=== PATIENT | male | born 1975 | race Caucasian/White ===

== ENCOUNTER 2024-05-10 12:56 | Inpatient (IN) | payer OTHER ==
[2024-05-10] MEDS ORDERED: LOPERAMIDE HCL 2 MG CAPSULE PO PRN (13:17)
[2024-05-10] MEDS ORDERED: POLYETHYLENE GLYCOL (HEALTHYLAX) 3350 17 GM PACKET PO PRN (13:17)
[2024-05-10] MEDS ORDERED: hydrOXYzine PAMOATE 25 MG CAPSULE (FP) PO PRN (13:17)
[2024-05-10] MEDS ORDERED: METHOCARBAMOL 500 MG TABLET PO PRN (13:17)
[2024-05-10] MEDS ORDERED: BENZOCAINE/MENTHOL (CHLORASEPTIC ) LOZENGE MM PRN (13:17)
[2024-05-10] MEDS ORDERED: NALOXONE (NARCAN) HCL 4 MG/0.1 ML SPRAY NS PRN (13:17)
[2024-05-10] MEDS ORDERED: BISMUTH SUBSALICYLATE 524 MG/30 ML PO PRN (13:17)
[2024-05-10] MEDS ORDERED: MAGNESIUM HYDROX 2400MG/30ML ORAL SUSPENSION 30 ML CUP PO PRN (13:17)
[2024-05-10] MEDS ORDERED: guaiFENesin 600 MG TABLET.ER (FP) PO PRN (13:17)
[2024-05-10] MEDS ORDERED: MAG HYDROX/AL HYDROX/SIMETH 30 ML UNIT-DOSE CUP PO PRN (13:17)
[2024-05-10] MEDS ORDERED: IBUPROFEN 400 MG TABLET (FP) PO PRN (13:17)
[2024-05-10] MEDS ORDERED: BENZONATATE 200 MG CAPSULE PO PRN (13:17)
[2024-05-10 13:22] VITALS: BMI 28.5
[2024-05-10] MEDS ORDERED: chlordiazePOXIDE HCL 25 MG CAPSULE ONE (15:11)
[2024-05-10] MEDS ORDERED: ONDANSETRON *ODT* 4 MG TABLET ONE (15:12)
[2024-05-10] MEDS: ACAMPROSATE CALCIUM 333 MG TABLET.DR PO SCH (15:14)
[2024-05-10] MEDS: ONDANSETRON *ODT* 4 MG TABLET SL PRN (15:16)
[2024-05-10] MEDS: chlordiazePOXIDE HCL 25 MG CAPSULE PO PRN (15:17)
[2024-05-10] MEDS: PRENATAL VITAMINS W/ FOLIC ACID TABLET (FP) PO SCH (15:22)
[2024-05-10] MEDS ORDERED: INSULIN (NOVOLOG) ASPART 100 UNITS/ML 10ML VIAL ONE ×2 (16:03→22:20)
[2024-05-10] MEDS: INSULIN ASPART SLIDING SCALE (NOVOLOG) 1 VIAL SQ SCH (16:15)
[2024-05-10 16:41] VITALS: RESP 16
[2024-05-10] MEDS: chlordiazePOXIDE HCL 25 MG CAPSULE PO SCH (17:34)
[2024-05-10] MEDS: DICYCLOMINE HCL 10 MG CAPSULE PO PRN (17:34)
[2024-05-10] MEDS: ACETAMINOPHEN 325 MG TABLET (FP) PO PRN (17:38)
[2024-05-10] MEDS: IBUPROFEN 600 MG TABLET (FP) PO PRN (20:09)
[2024-05-10] MEDS: MELATONIN 5 MG TABLETS PO SCH (22:22)
[2024-05-10] MEDS: GABAPENTIN 100 MG CAPSULE PO ONE (22:22)
[2024-05-10] MEDS: THIAMINE 100 MG TABLET PO SCH (22:22)
[2024-05-11 08:36] VITALS: BP 127/89; PULSE 80; TEMP 97.6
[2024-05-11] MEDS ORDERED: INSULIN (NOVOLOG) ASPART 100 UNITS/ML 10ML VIAL ONE (11:14)
[2024-05-11] MEDS: PNEUMOC 20-VAL CONJ-DIP CRM/PF 0.5 ML SYRINGE IM ONE (11:16)
[2024-05-11 11:33] LABS: POTASSIUM 4.1 mmol/L (3.5-5.1)
[2024-05-11 11:37] LABS: HEMATOCRIT 47.5 % (35.4-49); HEMOGLOBIN 16.5 GM/dL (11.7-16.9); MCHC 34.8 g/dl (32.0-35.9); MEAN PLT VOLUME 9.3 fl (7.5-11.1); PLATELET COUNT 191 10^3/uL (134-434); RBC 5.16 M/mm3 (4.00-5.60); RDW 13.7 % (11.9-15.9); WHITE BLOOD COUNT 5.2 K/mm3 (4.0-10.0)
[2024-05-11 11:40] LABS: ALBUMIN 4.2 g/dl (3.4-5.0)
[2024-05-11 11:42] LABS: BLOOD UREA NITROGEN 7.6 mg/dL (7-18)
[2024-05-11 11:43] LABS: CREATININE 0.8 mg/dL (0.55-1.3)
[2024-05-11 11:45] LABS: BILIRUBIN,TOTAL 0.6 mg/dL (0.2-1)
[2024-05-11 11:46] LABS: TOT PROT 8.4 g/dl (6.4-8.2)
[2024-05-11 14:31] LABS: HIV INTERPRETATION NEGATIVE (NEGATIVE)
[2024-05-12] MEDS ORDERED: chlordiazePOXIDE HCL 25 MG CAPSULE PO SCH (05:00)
[2024-05-13] MEDS ORDERED: chlordiazePOXIDE HCL 10 MG CAPSULE PO PRN
[2024-05-13] MEDS ORDERED: chlordiazePOXIDE HCL 10 MG CAPSULE PO SCH (05:00)
[2024-05-14] MEDS ORDERED: chlordiazePOXIDE HCL 10 MG CAPSULE PO SCH (05:00)
[2024-05-15] MEDS ORDERED: chlordiazePOXIDE HCL 10 MG CAPSULE PO ONE (05:00)
== END 2024-05-11 13:31 | disposition home or self-care (01) | DRG 775 ==
LOC: YASAS 12:56 → Y6N 14:50
PROVIDERS: ADMIT Allergy & Immunology; ATTEND Allergy & Immunology
PROC: HZ2ZZZZ Detoxification Services for Substance Abuse Treatment (ICD-10-PCS; principal; 2024-05-10)
DX: F10.230 Alcohol dependence with withdrawal, uncomplicated (principal); F10.282 Alcohol dependence with alcohol-induced sleep disorder; I10 Essential (primary) hypertension; E11.42 Type 2 diabetes mellitus with diabetic polyneuropathy; Z79.84 Long term (current) use of oral hypoglycemic drugs
CPT/HCPCS: 36415; 80053; 80305; 80307; 82962; 83036; 85027; 86780; 86803; 87389; 93005; 93010; Q0162